=== PATIENT | male | born 1965 | race Hispanic/Latino ===

== ENCOUNTER 2020-05-20 08:49 | Outpatient (CLI) | payer MEDICARE ==
[2020-05-20 09:45] LABS: Blood Urea Nitrogen 10 mg/dL (9-20)
--- NOTE | 2020-05-20 10:32 | Cat Scan Report ---
CT CHEST WITH CONTRAST INDICATION / CLINICAL INFORMATION: MAIN. TECHNIQUE: Axial CT images were obtained through the chest after 100 cc Omnipaque 300 mg percent IV contrast. Al l CT scans at this location are performed using CT dose reduction for ALARA by means of automated exp osure control. COMPARISON: None available. FINDINGS: HEART: No significant abnormality. THORACIC AORTA: No significant abnormality. MEDIASTINUM and WING: Calcified subcarinal lymph nodes present. LUNGS: Ill-defined densities present left lower lobe measuring approximately 2.5 cm. PLEURA: No significant pleural effusion. No pneumothorax. ADDITIONAL FINDINGS: None. UPPER ABDOMEN: No significant abnormality. SKELETAL SYSTEM: No significant abnormality. IMPRESSION: 1. Patchy left lower lobe airspace process, pneumonia is a concern. Recommend follow-up radiographs t o ensure complete clearing and exclude neoplastic process Signer Name: Joey Orozco MD Signed: 05/20/2020 10:28 AM Workstation Name: [id number]
--- NOTE | 2020-05-20 10:38 | XRay Report ---
CHEST 2 VIEWS INDICATION / CLINICAL INFORMATION: LEFT LOWE LOBE MASS/R91.8Other nonspecific abnormal finding of fredis. COMPARISON: None available. FINDINGS: SUPPORT DEVICES: Dual-lead left chest wall cardiac device with lead terminating over the right atrium and right ventricle. HEART / MEDIASTINUM: No significant abnormality. Coronary artery stents are noted. LUNGS / PLEURA: No significant pulmonary or pleural abnormality. No pneumothorax. ADDITIONAL FINDINGS: No significant additional findings. IMPRESSION: 1. No acute findings. Signer Name: Aris Moran MD Signed: 05/20/2020 10:34 AM Workstation Name: [id number]
== END 2020-05-20 08:50 | disposition home or self-care (01) ==
LOC: CT 08:49
PROVIDERS: ATTEND Internal Medicine
DX: R91.8 Other nonspecific abnormal finding of lung field (principal)
CPT/HCPCS: 36415; 71046; 71260; 82565; 84520; Q9967

== ENCOUNTER 2020-08-18 09:56 | Outpatient (CLI) | payer MEDICARE ==
[2020-08-18 11:14] LABS: Blood Urea Nitrogen 9 mg/dL (9-20)
--- NOTE | 2020-08-18 11:46 | Cat Scan Report ---
CT chest w con HISTORY: Follow-up airspace disease. Pneumonia. COMPARISON: CT chest 05/20/2020 TECHNIQUE: Chest CT exam. All CT scans at this location are performed using CT dose reduction for ALA RA by means of automated exposure control. FINDINGS: CT CHEST: Lungs: Resolution of prior seen left lower lobe consolidation. No acute airspace disease. No pleural fusion. No pneumothorax. No new or enlarging suspicious pulmonary nodule. Trachea and Bronchi: No significant abnormality. Mediastinum/Lymph nodes: No lymphadenopathy. Heart: No significant abnormality. Transvenous left AICD. Vasculature: No significant abnormality. No filling defects seen within the pulmonary arteries. Osseous Structures: No aggressive appearing osseous lesions. Additional Findings: None IMPRESSION: 1. Resolution of prior seen left lower lobe airspace disease consistent with pneumonia. No significan t abnormality on today's examination. Signer Name: Bradly Kapoor MD Signed: 08/18/2020 11:41 AM Workstation Name: [id number]
== END 2020-08-18 09:57 | disposition home or self-care (01) ==
LOC: CT 09:56
PROVIDERS: ATTEND Internal Medicine
DX: R91.8 Other nonspecific abnormal finding of lung field (principal)
CPT/HCPCS: 36415; 71260; 82565; 84520; Q9967